=== PATIENT | male | born 1960 ===

== ENCOUNTER 2017-08-17 01:12 | Emergency (ER) | payer MEDICARE ==
[2017-08-17 01:29] VITALS: BP 154/77; PULSE 73; RESP 20; TEMP 98.3; O2SAT 100
--- NOTE | 2017-08-17 01:44 | C.PDOC ---
History Of Present Illness 57 year old male presents to the ED c/o of a chronic sore to the right cheek. Patient reports having intermittent bleeding along with pain and discomfort which prompted the visit for evaluation today. Patient denies fever, chills, nausea, vomit, headache. Time Seen by Provider: 08/17/17 01:24 Chief Complaint (Nursing): Dental Pain History Per: Patient History/Exam Limitations: no limitations Onset/Duration Of Symptoms: Days Current Symptoms Are (Timing): Still Present Quality: Positive for: "Pain" Recent travel outside of the [place]: No Additional History Per: Patient Past Medical History Reviewed: Historical Data, Nursing Documentation, Vital Signs Vital Signs: Last Vital Signs Temp 98.3 F 08/17/17 01:24 Pulse 73 08/17/17 01:24 Resp 20 08/17/17 01:24 BP 154/77 H 08/17/17 01:24 Pulse Ox 100 08/17/17 02:09 - Medical History PMH: HTN, Hypercholesterolemia Surgical History: No Surg Hx Family History: States: Unknown Family Hx - Social History Hx Alcohol Use: No Hx Substance Use: Yes Review Of Systems Constitutional: Negative for: Fever, Chills ENT: Positive for: Mouth Pain Neurological: Negative for: Weakness, Numbness Physical Exam - Physical Exam Appears: Non-toxic, No Acute Distress Skin: Normal Color, Warm, Dry Head: Atraumatic, Normacephalic Eye(s): bilateral: Normal Inspection Nose: No Discharge, No Deformity Oral Mucosa: Moist, Other (erythematous area with a small ulcer at center, no fluctuant mass, no swelling right cheek) Tongue: Normal Appearing Lips: No Swelling Teeth: No Tender To Palpation Gingiva: No Swelling, No Tender Throat: Normal, No Erythema, No Exudate Neurological/Psych: Oriented x3, Normal Speech ED Course And Treatment O2 Sat by Pulse Oximetry: 100 (On RA) Pulse Ox Interpretation: Normal Disposition Counseled Patient/Family Regarding: Diagnosis, Need For Followup, Rx Given - Disposition Referrals: Melodie Arzate DMD [Staff Provider] - [facility], DENTAL [facility] [Other] Disposition: HOME/ ROUTINE Disposition Time: 01:42 Condition: STABLE Additional Instructions: Please follow up with dentist Take meds as directed Return to ER if worse Prescriptions: Amoxicillin 500 mg PO TID #21 tab Forms: Gen Discharge Inst Turkmen Print Language: NEPALI - Clinical Impression Clinical Impression: Skin ulcer of cheek - PA / EXPERT WITNESS / Resident Statement MD/DO has reviewed & agrees with the documentation as recorded. - Scribe Statement The provider has reviewed the documentation as recorded by the Scribe Gigi Reyes All medical record entries made by the Scribe were at my direction and personally dictated by me. I have reviewed the chart and agree that the record accurately reflects my personal performance of the history, physical exam, medical decision making, and the department course for this patient. I have also personally directed, reviewed, and agree with the discharge instructions and disposition.
== END 2017-08-17 02:23 | disposition home or self-care (01) ==
LOC: C.ER 01:12
DX: L98.499 Non-pressure chronic ulcer of skin of other sites with unspecified severity (principal)